=== PATIENT | female | born 1985 | race Caucasian/White ===

== ENCOUNTER 2023-09-27 13:14 | Emergency (ER) | payer OTHER, SELFPAY ==
[2023-09-27] VITALS (9 sets, daily range): BP systolic 111–132; BP diastolic 69–78; PULSE 70–90; RESP 12–18; TEMP 36.7; O2SAT 93–100; BMI 25.0
--- NOTE | 2023-09-27 13:33 | DI.CT.S_ITS ---
PROCEDURE: CT HEAD/BRAIN WO CON INDICATIONS: R ARM NUMBNESS X 30 MINUTES TECHNIQUE: Noncontrast 4.5 mm thick angled axial sections acquired from the foramen magnum to the vertex, with coronal and sagittal reformats. For radiation dose reduction, the following was used: automated exposure control, adjustment of mA and/or kV according to patient size. COMPARISON: None. FINDINGS: Image quality: Diagnostic. CSF spaces: Basal cisterns are patent. No extra-axial fluid collections. Ventricles are normal in size and shape. Brain: No midline shift. No intracranial masses or hemorrhage. Harper-white matter interface is normal. Skull and face: Calvarium and visualized facial bones are intact, without suspicious lesions. Sinuses: Visualized sinuses and mastoids are clear. IMPRESSION: No acute intracranial pathology. Dictated by: Kaden Sargent M.D. on 09/27/2023 at 14:27 Approved by: Kaden Sargent M.D. on 09/27/2023 at 14:28
--- NOTE | 2023-09-27 13:41 | ED.NEUROSD ---
HPI - Neuro Symptoms/Deficit General Chief Complaint: Neuro Symptoms/Deficit Stated Complaint: Numbess R Side Time Seen by Provider: 09/27/23 13:22 Source: patient Mode of arrival: EMS History of Present Illness HPI Narrative: 37-year-old female presents by EMS from her place of work for right-sided numbness. She states that she was moving boxes at work when she felt the tips of her fingers become numb and spread quickly upper arm. She states she developed right-sided facial numbness and became extremely concerned and called 911. On arrival patient is symptoms have resolved. She states she feels like her right arm is still ?heavy?, but she denies any numbness. On Anticoagulants: No Related Data Home Medications Medication Instructions Recorded Confirmed sertraline 100 mg tablet 100 mg PO DAILY 09/27/23 09/27/23 Allergies Allergy/AdvReac Type Severity Reaction Status Date / Time No Known Drug Allergies Allergy Verified 09/27/23 13:29 Review of Systems Review of Systems Narrative: Negative except as noted above Hematologic/Lymphatic On Anticoagulants: No Patient History Social History Smoking Status: Never smoker Smoking Status: Never smoker alcohol intake frequency: 0-2 drinks per day Substance Use Type: does not use Exam Initial Vital Signs Initial Vital Signs: Vital Signs Pulse Rate 90 09/27/23 13:19 Blood Pressure 132/78 09/27/23 13:19 Pulse Oximetry 99 09/27/23 13:19 Const: Awake, alert, no acute distress, nontoxic appearing Cardiac: regular rate, regular rhythm RESP: unlabored, clear bilaterally, no wheezing GI: Soft, nontender, nondistended, no rebound, no guarding MSK: Atraumatic, full range of motion, pulses equal Skin: Warm, Dry, intact, no rashes Neuro: AO x3, CN II-XII grossly intact, moves all extremities Course Orders Ordered: Discontinued Medications Sodium Chloride (Normal Saline 0.9%) 1,000 mls @ 1,000 mls/hr IV BOLUS ONE Stop: 09/27/23 14:31 Last Infusion: 09/27/23 15:32 Dose: Infused Documented By: Infusion: 09/27/23 14:23 Dose: 1,000 mls/hr Documented By: Infusion: 09/27/23 14:04 Dose: 0 mls/hr Documented By: Admin: 03/27/24 14:04 Dose: 1,000 mls/hr Documented By: CHRISTIANO Vital Signs Vital signs: Vital Signs - 8 hr 09/27/23 13:19 09/27/23 13:19 09/27/23 13:23 Temperature 98.1 F Pulse Rate 90 90 Respiratory Rate 18 Blood Pressure 132/78 132/78 Pulse Oximetry 99 98 Oxygen Delivery Method Room Air 09/27/23 13:44 09/27/23 13:46 09/27/23 13:46 Temperature Pulse Rate 83 80 Respiratory Rate 12 Blood Pressure 119/73 Pulse Oximetry 93 100 Oxygen Delivery Method Room Air MDM - Neuro Symptoms/Deficit Differential Diagnosis Differential diagnosis: Likely carpal tunnel syndrome, convulsions and delirium Lab Data 09/27/23 13:40 09/27/23 13:40 Labs: Lab Results 09/27/23 Range/Units 13:40 WBC 5.3 (4.5-11.0) X10^3/uL RBC 4.05 (4.0-5.2) X10^6/uL Hgb 13.2 (12.0-16.0) g/dL Hct 38.7 (36-46) % MCV 95.7 (80-100) fL MCH 32.7 (26-34) PG MCHC 34.1 (30-36) % RDW 12.7 (11.6-14.8) % Plt Count 246 (150-400) X10^3/uL Neut % (Auto) 64.7 (50-75) % Lymph % (Auto) 25.9 (25-40) % [place] % (Auto) 8.0 (3-14) % Eos % (Auto) 1.0 L (2-4) % Baso % (Auto) 0.4 (0-2) % Neut # (Auto) 3400 (1868-6299) /uL Lymph # (Auto) 1400 (3914-8015) /uL [place] # (Auto) 400 (0-900) /uL Eos # (Auto) 100 (0-450) /uL Baso # (Auto) 0 (0-100) /uL Sodium 137 (137-145) mmol/L Potassium 3.4 (3.4-5.1) mmol/L Chloride 107 (98-107) mmol/L Carbon Dioxide 23 (22-32) mmol/L BUN 17 (7-17) mg/dL Creatinine 0.79 (0.52-1.04) mg/dL Estimated GFR > 60 (>60) mL/min BUN/Creatinine Ratio 21.5 (6-22) Glucose 101 H (70-100) mg/dL Calcium 9.3 (8.4-10.2) mg/dL Total Bilirubin 0.6 (0.2-1.3) mg/dL AST 30 (14-36) IU/L ALT 18 (<35) IU/L Alkaline Phosphatase 38 (38-126) U/L Total Creatine Kinase 84 (30-135) U/L Troponin I < 0.012 (0.01-0.034) ng/mL Total Protein 7.6 (6.3-8.2) g/dL Albumin 4.3 (3.5-5.0) g/dL Globulin 3.3 (1.7-4.1) g/dL Albumin/Globulin Ratio 1.3 (1.0-2.8) TSH 1.68 (0.47-4.68) uIU/mL Point of Care Testing Test Results Negative Urine Dip Bedside Urine Glucose Negative Bedside Urine Bilirubin - Negative Bedside Urine Ketone - Negative Urine Specific [place] 1.020 Bedside Urine Occult Blood - Negative Bedside Urine pH 6.0 Bedside Urine Protein - Negative Bedside Urine Urobilinogen - Negative Bedside Urine Nitrite - Negative Bedside Urine Leukocytes - Negative Esterase Imaging Data CT scan - head: Radiologist's Impression: PROCEDURE: CT HEAD/BRAIN WO CON INDICATIONS: R ARM NUMBNESS X 30 MINUTES TECHNIQUE: Noncontrast 4.5 mm thick angled axial sections acquired from the foramen magnum to the vertex, with coronal and sagittal reformats. For radiation dose reduction, the following was used: automated exposure control, adjustment of mA and/or kV according to patient size. COMPARISON: None. FINDINGS: Image quality: Diagnostic. CSF spaces: Basal cisterns are patent. No extra-axial fluid collections. Ventricles are normal in size and shape. Brain: No midline shift. No intracranial masses or hemorrhage. Harper-white matter interface is normal. Skull and face: Calvarium and visualized facial bones are intact, without suspicious lesions. Sinuses: Visualized sinuses and mastoids are clear. IMPRESSION: No acute intracranial pathology. Dictated by: Kaden Sargent M.D. on 09/27/2023 at 14:27 Approved by: Kaden Sargent M.D. on 09/27/2023 at 14:28 MDM Narrative Medical decision making narrative: Anxious but nontoxic patient presenting for brief episode of numbness in her right extremity and right face. NIH 0 on my exam, there are no focal deficits. Patient states she feels like her right arm is heavy but she has 5/5 strength in her upper and lower extremities bilaterally. Laboratory work is negative for acute abnormalities. Patient was remained asymptomatic throughout her entire stay in the emergency department. Noncontrast head CT is negative for acute findings. In an otherwise healthy patient with no known risk factors, brief duration of symptoms, an unremarkable workup I have very low suspicion for a stroke or stroke-like process at this time. Patient advised of all lab and imaging findings, recommended close follow up with primary care physician. Strict ED return precautions discussed with the patient and at bedside. Discharge Plan Departure Patient Disposition: Home Clinical Impression: Numbness Instructions: DI for Numbness/Tingling Activity Restrictions/Additional Instructions: Your laboratory work and CT today was normal. I do not know the cause of your symptoms today, but I highly recommend that you follow up with your primary care physician. Prescriptions: No Action sertraline 100 mg tablet 100 mg PO DAILY Stand Alone Forms: Patient Portal/API
[2023-09-27 13:50] LABS: Add Manual Diff / Slide Review NO; Basophils Absolute Auto 0 /uL (0-100); Basophils Percent Auto 0.4 % (0-2); Eosinophils Absolute Auto 100 /uL (0-450); Hematocrit 38.7 % (36-46); Hemoglobin 13.2 g/dL (12.0-16.0); Lymphocytes Absolute Auto 1400 /uL (1100-4500); Lymphocytes Percent Auto 25.9 % (25-40); Mean Corpuscular HGB Conc 34.1 % (30-36); Mean Corpuscular Hemoglobin 32.7 PG (26-34); Mean Corpuscular Volume 95.7 fL (80-100); Monocytes Absolute Auto 400 /uL (0-900); Neutrophils Absolute Auto 3400 /uL (1500-7000); Neutrophils Percent Auto 64.7 % (50-75); Platelet Count 246 X10^3/uL (150-400); Red Blood Cell Count 4.05 X10^6/uL (4.0-5.2); Red Cell Distribution Width 12.7 % (11.6-14.8); White Blood Cell Count 5.3 X10^3/uL (4.5-11.0)
[2023-09-27] MEDS: SODIUM CHLORIDE 0.9% 1,000 ML 1000 ML IV (14:04)
[2023-09-27 14:30] LABS: HEMOLYSIS < 15 (0-50)
[2023-09-27 14:48] LABS: Troponin I < 0.012 ng/mL (0.01-0.034)
[2023-09-27 15:10] LABS: Alanine Aminotransferase 18 IU/L (<35); Albumin 4.3 g/dL (3.5-5.0); Albumin Globulin Ratio 1.3 (1.0-2.8); Alkaline Phosphatase 38 U/L (38-126); Aspartate Aminotransferase 30 IU/L (14-36); BUN Creatinine Ratio 21.5 (6-22); Bilirubin Total 0.6 mg/dL (0.2-1.3); Blood Urea Nitrogen 17 mg/dL (7-17); Calcium 9.3 mg/dL (8.4-10.2); Carbon Dioxide 23 mmol/L (22-32); Chloride 107 mmol/L (98-107); Creatine Kinase 84 U/L (30-135); Estimated Glomerular Filt Rate > 60 mL/min (>60); Globulin 3.3 g/dL (1.7-4.1); Glucose 101 mg/dL (70-100); Potassium 3.4 mmol/L (3.4-5.1); Total Protein 7.6 g/dL (6.3-8.2)
[2023-09-27 15:45] LABS: Sodium 137 mmol/L (137-145)
[2023-09-27 16:46] LABS: Thyroid Stimulating Hormone 1.68 uIU/mL (0.47-4.68)
== END 2023-09-27 15:38 | disposition home or self-care (01) ==
PROVIDERS: Emergency Provider Emergency Medicine
DX: R20.0 Anesthesia of skin (principal)
CPT/HCPCS: 36415; 70450; 80053; 81003; 81025; 82550; 84443; 84484; 85025; 93005; 99284; 99285